=== PATIENT | male | born 1945 | race Caucasian/White ===

== ENCOUNTER 2016-08-25 16:01 | Emergency (ER) | payer MEDICARE ==
--- NOTE | 2016-08-25 17:43 | ED ---
Upper Extremity Pain - HPI Summary HPI Summary: Patient presents with left thumb pain for two days. He hurt it when he unsnapped the top of his shop vac. He felt immediate pain afterwards and waited 48 hours to see if it would improve. He has swelling and bruising, and has used ibuprofen 600mg 3-4 times daily with relief. He is left handed and has pain when using the thumb. - History of Current Complaint Chief Complaint: EDExtremityUpper Stated Complaint: THUMB INJURY Time Seen by Provider: 08/25/16 17:14 Hx Obtained From: Patient Mechanism Of Injury: Twisted Onset/Duration: Started Days Ago - 2 Timing: Constant Severity Initially: Mild Severity Currently: Severe Pain Location: Finger - left thumb Character: Aching, Throbbing, Stiffness Aggravating Factor(s): Movement Alleviating Factor(s): Nothing Associated Signs & Symptoms: Positive: Swelling, Bruising Related History: Dominant Hand Left - Allergies/Home Medications Allergies/Adverse Reactions: Allergies Allergy/AdvReac Type Severity Reaction Status Date / Time No Known Allergies Allergy Verified 02/15/16 08:29 PMH/Surg Hx/FS Hx/Imm Hx Endocrine/Hematology History: Reports: Hx Anticoagulant Therapy - ASA Denies: Hx Diabetes Cardiovascular History: Reports: Hx Angina, Hx Coronary Artery Disease, Hx Hypercholesterolemia, Hx Hypertension, Hx Myocardial Infarction, Other Cardiovascular Problems/Disorders - OBESITY Denies: Hx Valvular Heart Disease Respiratory History: Reports: Other Respiratory Problems/Disorders - sherry Denies: Hx Asthma, Hx Chronic Obstructive Pulmonary Disease (COPD) GI History: Reports: Hx Gastroesophageal Reflux Disease, Other GI Disorders - lap band Denies: Hx Ulcer History: Reports: Hx Benign Prostatic Hyperplasia, Hx Kidney Stones Neurological History: Denies: Hx CVA Psychiatric History: Reports: Hx Attention Deficit Hyperactivity Disorder - Surgical History Surgery Procedure, Year, and Place: laproscopic band Infectious Disease History: No Infectious Disease History: Denies: Traveled Outside the [place] in Last 30 Days - Family History Known Family History: Positive: None, Cardiac Disease, Diabetes Negative: Hypertension Family History: R & n/C - Social History Occupation: Retired Lives: With Family Alcohol Use: Occasionally Hx Substance Use: No Substance Use Type: Reports: None Hx Tobacco Use: Yes - on and off for 25 years Smoking Status (MU): Former Smoker Review of Systems Positive: Arthralgia, Myalgia, Decreased ROM, Edema Positive: Bruising Negative: Weakness, Paresthesia, Numbness All Other Systems Reviewed And Are Negative: Yes Physical Exam Triage Information Reviewed: Yes Vital Signs On Initial Exam: Initial Vitals Temp Pulse Resp BP Pulse Ox 97.1 F 66 18 134/74 98 08/25/16 16:23 08/25/16 16:23 08/25/16 16:23 08/25/16 16:23 08/25/16 16:23 Vital Signs Reviewed: Yes Appearance: Positive: Well-Appearing, Pain Distress, Obese Skin: Positive: Warm, Skin Color Reflects Adequate Perfusion, Dry, Tender Head/Face: Positive: Normal Head/Face Inspection Eyes: Positive: EOMI, ESTEFANY, Conjunctiva Clear ENT: Positive: Hearing grossly normal Respiratory/Lung Sounds: Positive: Breath Sounds Present Cardiovascular: Positive: RRR Musculoskeletal: Positive: Limited @ - left thumb adduction and abduction limited, Pain @ - left thumb adduction against resistance; TTP over extensor policis brevis and base of 1st metacarpal, Edema Left - left thumb Neurological: Positive: Sensory/Motor Intact, Alert, Oriented to Person Place, Time, NV Bundle Intact Distally Psychiatric: Positive: Affect/Mood Appropriate AVPU Assessment: Alert Procedures - Splinting Location: left thumb Hand-Made Type: orthoglass Splint: thumb spica Pre-Proc Neuro Vasc Exam: normal Post-Proc Neuro Vasc Exam: normal Diagnostics - Vital Signs Vital Signs Temp Pulse Resp BP Pulse Ox 08/25/16 16:23 97.1 F 66 18 134/74 98 - Laboratory Lab Statement: Any lab studies that have been ordered have been reviewed, and results considered in the medical decision making process. Course/Dx - Diagnoses Differential Diagnosis/HQI/PQRI: Positive: Arthritis, Bursitis, Contusion, Fracture (Closed), Hematoma, Strain, Sprain Provider Diagnoses: Fracture of thumb, left, closed Discharge - Discharge Plan Condition: Stable Disposition: HOME Patient Education Materials: Thumb Fracture (ED) Referrals: Goyo Hanson MD [Primary Care Provider] - Rebekah Sanchez MD [Medical Doctor] - Additional Instructions: Please keep your splint clean, dry and intact at all times. Elevate your hand above your heart and take ibuprofen 600mg three to four times daily with meals to decrease swelling and pain as well. Call Dr. Sanchez's office with orthopedics for an appointment for evaluation and treatment. Return to the emergency department if your symptoms worsen.
--- NOTE | 2016-08-25 17:55 | RAD ---
HISTORY: Left hand first digit injury COMPARISONS: None VIEWS: 3, Frontal, lateral, and oblique views of the first digit of left hand FINDINGS: BONE DENSITY: Normal. BONES: There is a nondisplaced fracture of the base of the first metatarsal JOINTS: There is osteoarthritis of the first CMC, MCP, and interphalangeal joints ALIGNMENT: There is no dislocation. SOFT TISSUES: Unremarkable. OTHER FINDINGS: None. IMPRESSION: 1. NONDISPLACED FRACTURE OF THE BASE OF THE FIRST METATARSAL. 2. OSTEOARTHRITIS
[2016-08-25 19:27] VITALS: BP 135/74
== END 2016-08-25 19:26 | disposition home or self-care (01) ==
LOC: ED 16:01
DX: S62.502A Fracture of unspecified phalanx of left thumb, initial encounter for closed fracture (principal); M25.50 Pain in unspecified joint; Z87.891 Personal history of nicotine dependence; W22.8XXA Striking against or struck by other objects, initial encounter; Y93.89 Activity, other specified; Y92.89 Other specified places as the place of occurrence of the external cause
CPT/HCPCS: 99282

== ENCOUNTER 2017-10-20 22:02 | Emergency (ER) | payer MEDICARE ==
[2017-10-20] MEDS ORDERED: Gabapentin CAP(*) 100 MG PO ONE (22:34)
[2017-10-20] MEDS ORDERED: Acetaminophen TAB* 325 MG PO ONE (22:34)
[2017-10-20] MEDS ORDERED: Ibuprofen TAB* 200 MG PO ONE (22:34)
[2017-10-20] MEDS ORDERED: Acyclovir* 400 MG TAB PO ONE (22:36)
[2017-10-20 23:07] VITALS: BP 148/89
--- NOTE | 2017-10-21 00:04 | ED ---
Costa Granaods Natalie, scribed for Diego Shannon MD on 10/20/17 at 2235 . Skin Complaint - HPI Summary HPI Summary: The patient is a 72 y/o M presenting to the ED c/o rash on left back and flank starting two days ago. The rash started out as singular spot, but has enlarged and spread starting today. The pain is described as a burning sensation. The pain is alleviated when sitting and aggravated with contact. The pain is rated 9 /10 in severity. He has treated the pain to some relief with Tylenol [employer]. He has had chicken pox and did not get the shingles vaccine. - History of Current Complaint Chief Complaint: EDRashSkinAbscess Time Seen by Provider: 10/20/17 22:21 Stated Complaint: SORE ON BACK Hx Obtained From: Patient Onset/Duration: Started Days Ago, Still Present Timing: Constant Onset Severity: Mild Current Severity: Moderate Pain Intensity: 5 Pain Scale Used: 0-10 Numeric Skin Location: Other: - left flank and back Character: Pain - burning, Redness Aggravating Symptom(s): Other: - contact Alleviating Symptom(s): Other: - sitting, rest Associated Signs & Symptoms: Negative - fever - Additional Pertinent History Primary Care Physician: [id number] - Allergy/Home Medications Allergies/Adverse Reactions: Allergies Allergy/AdvReac Type Severity Reaction Status Date / Time No Known Allergies Allergy Verified 10/20/17 22:08 PMH/Surg Hx/FS Hx/Imm Hx Endocrine/Hematology History: Reports: Hx Anticoagulant Therapy - ASA Denies: Hx Diabetes Cardiovascular History: Reports: Hx Angina, Hx Coronary Artery Disease, Hx Hypercholesterolemia, Hx Hypertension, Hx Myocardial Infarction, Other Cardiovascular Problems/Disorders - OBESITY Denies: Hx Valvular Heart Disease Respiratory History: Reports: Other Respiratory Problems/Disorders - sherry Denies: Hx Asthma, Hx Chronic Obstructive Pulmonary Disease (COPD) GI History: Reports: Hx Gastroesophageal Reflux Disease, Other GI Disorders - lap band Denies: Hx Ulcer History: Reports: Hx Benign Prostatic Hyperplasia, Hx Kidney Stones Neurological History: Denies: Hx CVA Psychiatric History: Reports: Hx Attention Deficit Hyperactivity Disorder - Surgical History Surgery Procedure, Year, and Place: laproscopic band Infectious Disease History: No Infectious Disease History: Denies: Traveled Outside the [place] in Last 30 Days - Family History Known Family History: Positive: Cardiac Disease, Diabetes Negative: Hypertension Family History: R & n/C - Social History Alcohol Use: Occasionally Hx Substance Use: No Substance Use Type: Reports: None Hx Tobacco Use: Yes - on and off for 25 years Smoking Status (MU): Former Smoker Review of Systems Negative: Fever Positive: Rash - left flank and back with pain, Other - redness All Other Systems Reviewed And Are Negative: Yes Physical Exam - Summary Physical Exam Summary: Appearance: Well appearing, no pain distress Skin: warm, dry, reflects adequate perfusion, dermatomal versicolor rash on left low lumbar area spreading around towards belt line Head/face: normal Eyes: EOMI, ESTEFANY ENT: normal Neck: supple, non-tender Respiratory: CTA, breath sounds present Cardiovascular: RRR, pulses symmetrical Abdomen: non-tender, soft Bowel Sounds: present Musculoskeletal: normal, strength/ROM intact Neuro: normal, sensory motor intact, A&Ox3 Triage Information Reviewed: Yes Vital Signs On Initial Exam: Initial Vitals Temp Pulse Resp BP Pulse Ox 97.7 F 68 18 141/81 96 10/20/17 22:04 10/20/17 22:04 10/20/17 22:04 10/20/17 22:04 10/20/17 22:04 Vital Signs Reviewed: Yes Diagnostics - Vital Signs Vital Signs Temp Pulse Resp BP Pulse Ox 10/20/17 22:04 97.7 F 68 18 141/81 96 - Laboratory Lab Statement: Any lab studies that have been ordered have been reviewed, and results considered in the medical decision making process. Course/Dx - Course Course Of Treatment: Patient with classic herpes zoster in a dermatomal pattern on his left flank. Started antiviral here. Had relief with Tylenol. Give him a dose of gabapentin as well. We'll continue outpatient Valtrex and have him follow up closely with his primary care physician. - Diagnoses Provider Diagnoses: Herpes zoster Discharge - Sign-Out/Discharge Documenting (check all that apply): Discharge/Admit/Transfer - Discharge Plan Condition: Good Disposition: HOME Prescriptions: Gabapentin [Neurontin] 100 mg PO TID #15 capsule ValACYclovir (*) [Valtrex 1 GM(*)] 1 gm PO TID #20 tab Patient Education Materials: Shingles (ED) Referrals: Goyo Hanson MD [Primary Care Provider] - Additional Instructions: Call your doctor first thing in the morning for follow-up. Tylenol as needed for discomfort. See your doctor to get shingles vaccine. - Billing Disposition and Condition Condition: GOOD Disposition: HOME The documentation as recorded by the Costa hare Natalie accurately reflects the service I personally performed and the decisions made by me, Diego Shannon MD.
== END 2017-10-20 23:06 | disposition home or self-care (01) ==
LOC: ED 22:02
DX: B02.9 Zoster without complications (principal); I10 Essential (primary) hypertension; I25.10 Atherosclerotic heart disease of native coronary artery without angina pectoris; Z87.891 Personal history of nicotine dependence; Z79.01 Long term (current) use of anticoagulants; Z79.82 Long term (current) use of aspirin
CPT/HCPCS: 99282; A9270-GY

== ENCOUNTER 2019-09-18 07:23 | Emergency (ER) | payer MEDICARE ==
--- NOTE | 2019-09-18 07:47 | ED ---
GI/ HPI - HPI Summary HPI Summary: 74 y/o male presented to [facility] for bladder pain present since this morning. Pt woke up today with an urge to urinate and was able to urinate some but not much. Since then he has complained of bladder pain, dysuria, and urgency. Patient denies any diaphoresis, fever, chills, erythema of eyes, sore throat, chest pain, cough, abdominal pain, nausea/vomiting, hematuria, myalgia, edema, rash, or dizziness. He notes intermittent left flank pain since last week and chronic SOB. Pain is rated as 2/10 at baseline and 9/10 during intermittent episodes. Pt notes Hx of renal calculi in the and BPH. Medications reviewed. He did not take his medications for BPH yesterday or today. - History of Current Complaint Chief Complaint: EDUrogenitalProblems Time Seen by Provider: 09/18/19 07:35 Stated Complaint: UNABLE TO VOID Hx Obtained From: Patient Onset/Duration: Started Weeks Ago, Still Present Timing: Lasting Weeks Current Severity: Mild Pain Intensity: 3 Location of Pain: Other - bladder Associated Signs and Symptoms: Positive: Dysuria, Other: - positive - bladder pain, urgency; negative - diaphoresis, erythema of eyes, sore throat, hematuria , myalgia, edema, rash. Negative: Dizziness, Nausea, Vomiting, Fever, Chills, Abdominal Pain, Cough, Chest Pain - Additional Pertinent History Primary Care Physician: [id number] - Allergy/Home Medications Allergies/Adverse Reactions: Allergies Allergy/AdvReac Type Severity Reaction Status Date / Time No Known Allergies Allergy Verified 10/20/17 22:08 Home Medications: Home Medications Aspirin EC TAB* [Ecotrin EC Low Dose 81 MG*] 81 mg PO DAILY 10/05/15 [History Confirmed 02/15/16] Atorvastatin* [Lipitor 40 MG*] 40 mg PO DAILY 10/05/15 [History Confirmed ] Multiple Vitamins W/ Minerals [Centrum] 1 tab PO DAILY 10/05/15 [History Confirmed 02/15/16] Cholecalciferol [Vitamin D3] 2,000 unit PO DAILY 02/15/16 [History Confirmed ] Tamsulosin CAP* [Flomax CAP*] 0.4 mg PO DAILY 02/15/16 [History Confirmed ] Cephalexin CAP* [Keflex CAP*] 500 mg PO TID #21 cap 09/18/19 [Rx] Finasteride TAB* [Proscar TAB*] 5 mg PO DAILY 09/18/19 [History Confirmed ] Metoprolol Succinate XL TAB* [Toprol XL TAB*] 100 mg PO DAILY 09/18/19 [History Confirmed 09/18/19] Spironolactone TAB* [Aldactone TAB*] 50 mg PO DAILY 09/18/19 [History Confirmed 09/18/19] traZODone TAB* [Desyrel TAB*] 100 mg PO BEDTIME 09/18/19 [History Confirmed ] PMH/Surg Hx/FS Hx/Imm Hx Endocrine/Hematology History: Reports: Hx Anticoagulant Therapy - ASA Denies: Hx Diabetes Cardiovascular History: Reports: Hx Angina, Hx Coronary Artery Disease, Hx Hypercholesterolemia, Hx Hypertension, Hx Myocardial Infarction, Other Cardiovascular Problems/Disorders - OBESITY Denies: Hx Valvular Heart Disease Respiratory History: Reports: Other Respiratory Problems/Disorders - sherry Denies: Hx Asthma, Hx Chronic Obstructive Pulmonary Disease (COPD) GI History: Reports: Hx Gastroesophageal Reflux Disease, Other GI Disorders - lap band Denies: Hx Ulcer History: Reports: Hx Benign Prostatic Hyperplasia, Hx Kidney Stones Neurological History: Denies: Hx CVA Psychiatric History: Reports: Hx Attention Deficit Hyperactivity Disorder - Surgical History Surgery Procedure, Year, and Place: laproscopic band Infectious Disease History: No Infectious Disease History: Denies: Traveled Outside the [place] in Last 30 Days - Family History Known Family History: Positive: Cardiac Disease, Diabetes Negative: Hypertension Family History: R & n/C - Social History Alcohol Use: Occasionally Hx Substance Use: No Substance Use Type: Reports: None Hx Tobacco Use: Yes - on and off for 25 years Smoking Status (MU): Former Smoker Review of Systems Negative: Fever, Chills, Skin Diaphoresis Negative: Erythema Negative: Sore Throat Negative: Chest Pain Positive: Shortness Of Breath - chronic. Negative: Cough Negative: Abdominal Pain, Vomiting, Nausea Positive: dysuria, flank pain - intermittent, pain, urgency. Negative: hematuria Negative: Myalgia, Edema Negative: Rash Neurological/Mental Status: Other - negative - dizziness All Other Systems Reviewed And Are Negative: Yes Physical Exam - Summary Physical Exam Summary: Constitutional: Well-developed, Well-nourished, Alert. (-) Distressed Skin: Warm, Dry HENT: Normocephalic; Atraumatic Eyes: Conjunctiva normal Neck: Musculoskeletal ROM normal neck. (-) JVD, (-) Stridor, (-) Tracheal deviation Cardio: Rhythm regular, rate normal, Heart sounds normal; Intact distal pulses; The pedal pulses are 2+ and symmetric. Radial pulses are 2+ and symmetric. (-) Murmur Pulmonary/Chest wall: Effort normal. (-) Respiratory distress, (-) Wheezes, (-) Rales Abd: Soft, (-) tenderness, (-) Distension, (-) Guarding, (-) Rebound Musculoskeletal: (-) Edema Lymph: (-) Cervical adenopathy Neuro: Alert, Oriented x3 Psych: Mood and affect Normal Triage Information Reviewed: Yes Vital Signs On Initial Exam: Initial Vitals Temp Pulse Resp BP Pulse Ox 96.5 F 93 18 161/84 96 09/18/19 07:29 09/18/19 07:29 09/18/19 07:29 09/18/19 07:29 09/18/19 07:29 Vital Signs Reviewed: Yes Procedures - Sedation Patient Received Moderate/Deep Sedation with Procedure: No Diagnostics - Vital Signs Vital Signs Temp Pulse Resp BP Pulse Ox 09/18/19 07:29 96.5 F 93 18 161/84 96 - Laboratory Result Diagrams: 09/18/19 08:10 09/18/19 08:10 Lab Statement: Any lab studies that have been ordered have been reviewed, and results considered in the medical decision making process. - CT Abd/pel CT Interpretation Completed By: Radiologist Summary of CT Findings: IMPRESSION: 1. INCREASED CENTRAL ATTENUATION WITHIN THE INCOMPLETELY COLLAPSED URINARY BLADDER. RECOMMEND ULTRASOUND TO SCREEN FOR AN UNDERLYING LESION. 2. A NEARLY WATER ATTENUATING 5.7 CM STRUCTURE IN THE HEAD OF THE FATTY INVOLUTED. PANCREAS IS INCOMPLETELY CHARACTERIZED. ABDOMINAL MRI PANCREATIC MASS PROTOCOL IS. RECOMMENDED ON AN ELECTIVE BASIS. 3. NO NEPHROLITHIASIS OR HYDRONEPHROSIS. 4. 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 5. D.I.S.H. MORPHOLOGY OF THE IMAGED THORACOLUMBAR. This report was reviewed by the ED physician. GIGU Course/Dx - Course Course Of Treatment: 74 y/o male presented to [facility] for bladder pain present since this morning. Pt woke up today with an urge to urinate and was able to urinate some but not much. Since then he has complained of bladder pain, dysuria , and urgency. Patient denies any diaphoresis, fever, chills, erythema of eyes, sore throat, chest pain, cough, abdominal pain, nausea/vomiting, hematuria, myalgia, edema, rash, or dizziness. He notes intermittent left flank pain since last week and chronic SOB. Pain is rated as 2/10 at baseline and 9/10 during intermittent episodes. Pt notes Hx of renal calculi in the and BPH. He did not take his medications for BPH yesterday or today. Exam was normal. Labs showed Hgb 13.9, Hct 40, K 3.4, BUN/creatinine ratio 20.7, Glc 133, Lactic acid 2.1, Alk 119, and CRP 13.80. CT abd/pel showed the followin. INCREASED CENTRAL ATTENUATION WITHIN THE INCOMPLETELY COLLAPSED URINARY BLADDER. RECOMMEND ULTRASOUND TO SCREEN FOR AN UNDERLYING LESION. 2. A NEARLY WATER ATTENUATING 5.7 CM STRUCTURE IN THE HEAD OF THE FATTY INVOLUTED. PANCREAS IS INCOMPLETELY CHARACTERIZED. ABDOMINAL MRI PANCREATIC MASS PROTOCOL IS. RECOMMENDED ON AN ELECTIVE BASIS. 3. NO NEPHROLITHIASIS OR HYDRONEPHROSIS. 4. 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 5. D.I.S.H. MORPHOLOGY OF THE IMAGED THORACOLUMBAR. Pt requires MRI abd to further evaluate the pancreatic cyst. Leaving catheter in place due to thick sediment causing urinary obstruction. Pt was given 5mg PO finasteride , 0.4mg tamsulosin, 1g ceftraxione sodium. Pt was diagnosed with pancreatic cyst; prescribed PO Cephalexin; and discharged to home. - Diagnoses Differential Diagnoses - Male: Cystitis, Other - BPH, obstructing ureteral stone , renal insufficiency Provider Diagnoses: Pancreatic cyst - Critical Care Time Critical Care Statement: Critical care time is provided exclusive of any time spent performing procedures. Discharge ED - Sign-Out/Discharge Documenting (check all that apply): Patient Departure - dc - Discharge Plan Condition: Stable Disposition: HOME Prescriptions: Cephalexin CAP* [Keflex CAP*] 500 mg PO TID #21 cap Patient Education Materials: Urinary Tract Infection in Men (ED) Referrals: Goyo Hanson MD [Primary Care Provider] - Telly Matute MD [Medical Doctor] - Additional Instructions: RETURN TO THE EMERGENCY DEPARTMENT FOR CHANGING OR WORSENING SYMPTOMS. Follow up with Dr. Matute in 2-3 days and your primary care provider in 3-5 days. - Attestation Statements Document Initiated by Scribe: Yes Documenting Scribe: Prince Albarran Provider For Whom Scribe is Documenting (Include Credential): Ramses Bravo MD Scribe Attestation: IPrince, scribed for Ramses Bravo MD on 09/18/19 at 1023. Status of Scribe Document: Ready
[2019-09-18] MEDS ORDERED: Tamsulosin CAP* 0.4 MG PO ONE (07:51)
[2019-09-18] MEDS ORDERED: Finasteride TAB* 5 MG PO ONE (07:51)
[2019-09-18 08:18] LABS: ABS Eosinophils 0.1 10^3/ul (0-0.6); ABS Lymphocytes 1.1 10^3/ul (1.0-4.8); ABS Monocytes 0.6 10^3/ul (0-0.8); ABS Neutrophils 5.9 10^3/ul (1.5-7.7); Eosinophil % 1.2 %; Hematocrit 40 % (42-52); Hemoglobin 13.9 g/dL (14.0-18.0); Lymphocyte % 14.2 %; Mean Corpuscular HGB Conc 35 g/dL (31-36); Mean Corpuscular Hemoglobin 31 pg (27-31); Mean Corpuscular Volume 88 fL (80-94); Mean Platelet Volume 7.4 fL (7.4-10.4); Platelet Count 199 10^3/uL (150-450); Red Blood Count 4.53 10^6 /uL (4.18-5.48); Red Cell Distribution Width 14 % (10-15); White Blood Count 7.8 10^3/uL (3.5-10.8)
--- OUTSIDE RECORDS SUMMARY | 2019-09-18 08:27 | XMS REPORT | Continuity of Care Document ---
:1945 External Reference #:[id number] Author Name Calixto Velarde, OD Address [address] [place] [address] Care Team Providers Name Role Phone Goyo Hanson MD - Internal Care Team Information Academic Administrator [phone] Medicine Problems Description No Information Available Social History Type Date Description Comments Sex Unknown ETOH Use Denies alcohol use Tobacco Use Start: Unknown End: Unknown Patient is a former smoker quit 1995 Smoking Status Reviewed: 07/29/19 Patient is a former smoker quit 1995 Allergies, Adverse Reactions, Alerts Description No Known Drug Allergies Medications Active Medications SIG Qnty Indications Ordering Provider Date Spironolactone Unknown 25mg Tablets Torsemide Valentin HERNANDEZ, 20mg Tablets Goyo Atorvastatin Calcium Take 1 Tablet Unknown 40mg By Mouth Every Tablets Day Aspirin 81 twice a week Unknown 81mg Tablets DR Multivitamin Adult Unknown Tablets Vitamin D Unknown 2000Unit Capsules Metformin HCL ER Unknown 500mg Tablets ER 24HR Cyclobenzaprine HCL Unknown 10mg Tablets Metoprolol Succinate ER Unknown 100mg Tablets ER 24HR Immunizations Description No Information Available Vital Signs Date Vital Result Comment 06/28/2019 10:18am Intraocular Pressure Right Eye 19 mmHg squeezing Intraocular Pressure Left Eye 22 mmHg squeezing 02/11/2019 2:33pm Intraocular Pressure Right Eye 18 mmHg Intraocular Pressure Left Eye 18 mmHg Results Description No Information Available Procedures Date Code Description Status 07/29/2019 28650 Eye Exam Est Intermediate Completed 06/28/2019 15412 Eye Exam Est Intermediate Completed 02/11/2019 86850 Refraction Completed 02/11/2019 60396 Eye Exam New Intermediate Completed Medical Devices Description No Information Available Encounters Description No Information Available Assessments Date Code Description Provider 07/29/2019 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 Plan of Treatment 07/29/2019 - Calixto Velarde, ODH43.811 Vitreous degeneration, right eyeH02.413 Mechanical ptosis of bilateral eyelidsFollow up:yearly full VF taped/untaped if desired Functional Status Description No Information Available Mental Status Description No Information Available Referrals Description No Information Available
--- OUTSIDE RECORDS SUMMARY | 2019-09-18 08:27 | XMS REPORT | Summary of Care ---
:1945 Author Organization [facility] Address [address] [facility] [place] [address] Care Team Providers Name Role Phone Goyo Hanson Primary Care Provider Reason for Visit Reason Comments Hip Pain left Refer to Department Only (Routine) Status Reason Specialty Diagnoses / Referred By Contact Referred To Contact Procedures Closed Orthopedics Diagnoses Hip arthritis Franklin Franco PA [address] [address] Encounter Details Date Type Department Care Team Description 07/29/2019 Office Visit [facility] - Michelet Rodriguez, Primary osteoarthritis Rebekah HERNANDEZ of left hip (Primary [address]) [address] [place] [address] [place] [id number] Allergies No Known Allergiesdocumented as of this encounter (statuses as of 07/29/2019) Medications Medication Sig Dispensed Refills Start End Date Status Date Aspirin 81 MG Oral Take 81 mg by 0 Active Tab mouth. Cholecalciferol Take 2,000 0 Active (VITAMIN D3) 1000 Units by mouth UNITS Oral Tab DAILY. Multiple Take 1 Tab by 0 Active Vitamins-Minerals mouth DAILY. (CENTRUM SILVER ULTRA MENS PO) atorvastatin TAKE 1 TABLET 90 Tab 2 Active (LIPITOR) 40 MG Oral BY MOUTH EVERY 9 Tab DAY metoprolol succinate Take 1 Tab by 90 Tab 3 Active (TOPROL XL) 100 MG mouth DAILY. 0 Oral TABLET SR 24 HRIndications: Congestive heart failure, unspecified HF chronicity, unspecified heart failure type (HCC) Spironolactone 50 MG Take 1 Tab by 90 Tab 3 Active Oral TabIndications: mouth DAILY. 0 Congestive heart failure, unspecified HF chronicity, unspecified heart failure type (HCC) torsemide (DEMADEX) TAKE 1 AND 1/2 225 Tab 3 Active 20 MG Oral Tab TABS BY MOUTH 0 EVERY DAY IN THE MORNING AND 1 TAB IN THE AFTERNOON metFORMIN Take 2,000 mg 0 Active (GLUCOPHAGE XR) 500 by mouth MG Oral TABLET SR 24 DAILY. HR trazodone (DESYREL) Take 1 Tab by 90 Tab 1 Active 100 MG Oral mouth EVERY 0 TabIndications: BEDTIME. Insomnia, unspecified type FINASTERIDE PO Take by 0 Active mouth. Tamsulosin HCl Take 0.4 mg by 0 Active (FLOMAX) 0.4 MG Oral mouth DAILY. Cap meloxicam (MOBIC) 15 Take 1 Tab by 30 Tab 0 07/29/19 Discontinued MG Oral mouth DAILY. 0 20 (Patient stopped TabIndications: Left the medication) hip pain cyclobenzaprine Take 1 Tab by 42 Tab 0 07/29/19 Discontinued (FLEXERIL) 10 MG mouth THREE 0 20 (Patient stopped Oral TabIndications: TIMES DAILY the medication) Left hip pain NEEDED (for hip pain.). documented as of this encounter (statuses as of 07/29/2019) Active Problems Problem Noted Date Primary osteoarthritis of left hip 07/29/2019 Heart attack 02/24/2019 Dyslipidemia 02/23/2019 Essential hypertension 02/23/2019 Chronic diastolic congestive heart failure 06/10/2018 Binge eating disorder 06/10/2018 Overview: Sees therapist weekly transplant case manager Rebekah GRIFFIN prescription naltrexone Shanice Guajardo MICHELLE (obstructive sleep apnea) 05/18/2017 Overview: [employer] [place] (switched from [facility])- Bipap . 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 Band surgery [facility] 2006 pre op weight 360 pounds Lowest post op weight 312 2006 2014 weight gain 331 pounds Dysthymic disorder 07/13/2015 Overview: Buproprion treatment Hypovitaminosis D 07/13/2015 Gastroesophageal reflux disease without esophagitis 07/13/2015 documented as of this encounter (statuses as of 07/29/2019) Immunizations Name Administration Dates Next Due Influenza (IM) Preservative Free 02/29/2016 Influenza Vaccine 65 Yrs + 03/09/2019 Influenza Vaccine High Dose 03/18/2017 Influenza Vaccine Split 04/11/2014, 01/31/2012 Pneumococcal Conjugate Vaccine 04/13/2014, 11/02/2012, 09/29/2012 Pneumococcal Conjugate(13 Valent) 04/01/2014 TDAP Vaccine 01/30/2011 ZOSTER (SHINGRIX) VACCINE 02/15/2019 documented as of this encounter Social History Tobacco Use Types Packs/Day Years Used Date Former Smoker Cigarettes 1 10 Smokeless Tobacco: Never Used Alcohol Use Drinks/Week oz/Week Comments Yes 2 Glasses of wine 2.0 Sex Assigned at Date Recorded Not on file documented as of this encounter Last Filed Vital Signs Vital Sign Reading Time Taken Comments Blood Pressure - - Pulse - - Temperature - - Respiratory Rate 20 07/29/2019 12:26 PM EST Oxygen Saturation - - Inhaled Oxygen Concentration - - Weight 172.4 kg (380 lb) 07/29/2019 12:26 PM EST Height 182.9 cm (6') 07/29/2019 12:26 PM EST Body Mass Index 51.54 07/29/2019 12:26 PM EST documented in this encounter Progress Notes Michelet Rodriguez MD - 07/29/2019 12:15 PM EST PATIENT: Alphonse Elias : 1945 DATE OF SERVICE: 07/29/2019 REFERRING PROVIDER: Franklin Franco PCP: Goyo Hanson Chief Complaint Patient presents with ? Hip Pain left HPI: Alphonse Elias is a 74-y.o. male with complaint of left hip pain. The pain is 0/10 at rest, and 6/10 at its worst. The pain has been present for 1 months . It is located lateral thigh. It is worse with weight bearing, stairs and activity. Alphonse Elias has tried tylenol, NSAID's and activitymodification, these are no longer helping. Physical therapy and/or home exercise has bee done for 2 sessions. The pain is interfering with daily activities and affecting quality of life. Pain Assessment Location of pain: left hip Symptoms: Throbbing;Aching;Buckling Timing of Pain: Intermittent Relieving Factors: Rest Aggravating Factors: Rising after sitting;Walking;Bending What time of day is your pain worse?: Evening Pain Severity at Rest: 0 Pain Score during activity: 6 Result of Injury: No No Known Allergies Current Outpatient Medications Medication Sig ? Aspirin 81 MG Oral Tab Take 81 mg by mouth. ? atorvastatin (LIPITOR) 40 MG Oral Tab TAKE 1 TABLET BY MOUTH EVERY DAY ? Cholecalciferol (VITAMIN D3) 1000 UNITS Oral Tab Take 2,000 Units by mouth DAILY. ? FINASTERIDE PO Take by mouth. ? metFORMIN (GLUCOPHAGE XR) 500 MG Oral TABLET SR 24 HR Take 2,000 mg by mouth DAILY. ? metoprolol succinate (TOPROL XL) 100 MG Oral TABLET SR 24 HR Take 1 Tab by mouth DAILY. ? Multiple Vitamins-Minerals (CENTRUM SILVER ULTRA MENS PO) Take 1 Tab by mouth DAILY. ? Spironolactone 50 MG Oral Tab Take 1 Tab by mouth DAILY. ? Tamsulosin HCl (FLOMAX) 0.4 MG Oral Cap Take 0.4 mg by mouth DAILY. ? torsemide (DEMADEX) 20 MG Oral Tab TAKE 1 AND 1/2 TABS BY MOUTH EVERY DAY IN THE MORNING AND1 TAB IN THE AFTERNOON ? trazodone (DESYREL) 100 MG Oral Tab Take 1 Tab by mouth EVERY BEDTIME. No current facility-administered medications for this visit. Past Medical History: Diagnosis Date ? Heart disease DC in 1995 ? Hernia of abdominal cavity bilateral inguinal hernia repair in the mid- ? Kidney stone Past Surgical History: Procedure Laterality Date ? NC GI NUCLEAR PROCEDURE UNLISTED bilateral inguinal hernia ? NC GI NUCLEAR PROCEDURE UNLISTED lap band A comprehensive review of systems was done and negative except for that noted in the HPI Social History Socioeconomic History ? Marital status: Spouse name: Not on file ? Number of children: Not on file ? Years of education: Not on file ? Highest education level: Not on file Occupational History ? Not on file Social Needs ? Financial resource strain: Not on file ? Food insecurity Worry: Not on file Inability: Not on file ? Transportation needs Medical: Not on file Non-medical: Not on file Tobacco Use ? Smoking status: Former Smoker Packs/day: 1.00 Years: 10.00 Pack years: 10.00 Types: Cigarettes ? Smokeless tobacco: Never Used Substance and Sexual Activity ? Alcohol use: Yes Alcohol/week: 2.0 standard drinks Types: 2 Glasses of wine per week ? Drug use: No ? Sexual activity: Not on file Lifestyle ? Physical activity Days per week: Not on file Minutes per session: Not on file ? Stress: Not on file Relationships ? Social connections Talks on phone: Not on file Gets together: Not on file Attends gnosticism service: Not on file Active member of club or organization: Not on file Attends meetings of clubs or organizations: Not on file Relationship status: Not on file ? Intimate partner violence Fear of current or ex partner: Not on file Emotionally abused: Not on file Physically abused: Not on file Forced sexual activity: Not on file Other Topics Concern ? 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 He has no known exposure to asbestos, silica- possible tuberculosis with hisprofession. Family History Problem Relation Age of Onset ? Arthritis Mother ? Cancer Mother breast ? Diabetes Mother ? Heart Mother CHF ? High Cholesterol Mother ? Thyroid Mother ? Asthma Father ? Cancer Father lung with mets ? Heart Father ? High Cholesterol Father ? Alcohol/Drug No family history ? Allergies No family history ? Blood Disease No family history ? Genetic No family history ? GI No family history ? Genitourinary () No family history ? Hypertension No family history ? Psychiatry No family history ? Seizures No family history ? Stroke No family history ? Respiratory No family history Family history is reviewed and unremarkable PHYSICAL EXAMINATION: Resp 20 | Ht 6' (1.829 m) | Wt 380 lb (172.4 kg) | BMI 51.54 kg/m Body mass index is 51.54 kg/m. Awake, alert, oriented Bilateral hips: No peritroch tenderness. Pos pain with internal rotation. Pos antalgic gait. Neg trendelenburg. Limb lengths grossly equal. Pos stinchfield. ROM 0-90 flexion, 10 internal rotation, 25 external rotation, 30 abduction, 10adduction, 5/5 DF, 5/5PF, sensate saphenous, sural, deep peroneal, superficial peronea, and plantar nerves + 2 dorsalis pedis and + 2 posterior tibial pulses. No noted lymphedema No pain with range of motion of lumbar spine. Straight leg raise neg . Bilateral knees are free of crepitus. Full range of motion. Patella tracks normally. Ligaments stable. Pain free with range of motion. No swelling. No joint line tenderness..neutral alignement. RADIOLOGIC STUDIES: I Have personally reviewed the Imaging, the report , and reviewed with the patinet, and it shows Left hip with joint space narrowing, sclerosis, spurring, consistent with Osteoarthritis. Lab Results Component Value Date GLYCO 5.6 11/15/2018 GLYCO 5.6 05/14/2018 ASSESSMENT: ICD-9-CM ICD-10-CM 1. Primary osteoarthritis of left hip 715.15 M16.12 PLAN: We discussed the natural history of osteoarthritis. He understands that it is a degenarative condition that is likely to worsen and that currently we have no treatments that slow or reverse the course.Conservative options for symptomatic treatment were discussed along with total hip arthroplasty. Atthis time He is going to continue with symptomatic treatment and call when He is ready for further intervention. Current BMI 51 discussed weight loss, he is working with weight loss clinic, has lost 4 lbs Discussed steroid injection for short term relief We will get this scheduled Author: Michelet Rodriguez MD 07/29/2019 12:34 Portions of this note were made with voice recognition software documented in this encounter Plan of Treatment Date Type Specialty Care Team Description 09/12/2019 Office Visit Cardiology Amanda Aguilar PA [address] [place] [id number] [phone] 09/15/2019 Office Visit Pulmonary Kale Santiago MD [address] [place] [address] [phone] Health Maintenance Due Date Last Done Comments MEDICARE ANNUAL WELLNESS 1945 VISIT PNEUMOCOCCAL 65+YRS (2 of 2 04/13/2015 04/13/2014, 04/01/2014, - PPSV23) 11/02/2012, Additional history exists ZOSTER IMMUNIZATION SERIES 04/12/2019 02/15/2019 (2 of 2) LIPID DISORDER SCREENING 11/16/2019 11/15/2018, 09/13/2018, 05/14/2018, Additional history exists DEPRESSION SCREENING 06/30/2020 06/30/2019, 06/10/2018 FALL RISK ASSESSMENT 06/30/2020 06/30/2019, 06/30/2019 DTaP/Tdap/Td Vaccines (2 - 01/30/2021 01/30/2011 Tdap) Colonoscopy 07/10/2024 07/10/2014 (Previously completed), 05/05/2011 AAA SCREENING/SURVEILLANCE Completed 06/16/2018 INFLUENZA VACCINE Completed 03/09/2019, 03/18/2017, 02/29/2016, Additional history exists HEPATITIS A IMMUNIZATION Aged Out No longer eligible SERIES based on patient's age to complete this topic HPV IMMUNIZATION SERIES Aged Out No longer eligible based on patient's age to complete this topic MENINGOCOCCAL VACCINE IMM Aged Out No longer eligible based on patient's age to complete this topic documented as of this encounter Goals Goal Patient Goal Associated Recent Patient-Stated? Author Type Problems Progress Blood Pressure Blood Pressure 138/86 No [place], < 150/90 (06/30/2019 Franklin Benton, 1:24 PM EST) JORDI Note: This is an individualized treatment (blood pressure) goal for Alphonse Elias: Displayed above (on the left) is your goal for blood pressure control. Your most recent blood pressure is also shown above, on the right. You should try to achieve blood pressures that are lower than your goal listed above (on the left). Weight increase vs. 18 mo CHF 33 (07/29/2019 12:26 PM EST) Goyo Richardson MD min (lbs) < 5 Note: This is an individualized treatment (congestive heart failure, CHF) goal for Alphonse Elias: Displayed above (on the right) is how many pounds you are in excess of your lowest weight over the past 18 months. Note that lower numbers are better. Excessive weight gain often indicates fluid reten tion and worsening heart failure. You should contact your doctor immediately if the above number is too high (above your goal, the number on the left). Depression screen Depression 12 (06/10/2018 4:15 PM Goyo Richardson , (PHQ-9) total score < 5 EST) Note: This is an individualized treatment (depression) goal for Alphonse Elias: Displayed above is your goal for a depression screening (PHQ-9) score that would indicate good control of your depression. Keep a regular sleep schedule Lifestyle Goyo Richardson MD Note: This is an individualized lifestyle goal for Alphonse Elias: Please maintain a regular sleep schedule. This may help with some symptoms of depression. Consume a [id number] diet Lifestyle Goyo Richardson MD Note: This is an individualized lifestyle goal for Alphonse Elias: Please do not add additional salt to your food. Additional salt may lead to fluid retention and worsen your congestive heart failure. Take all prescribed medications as Self-management Goyo Richardson MD directed Note: This is an individualized self-management goal for Alphonse Elias: Please take all prescribed medications as directed. 1. Do not skip doses. If you cannot afford your medications, talk with your doctor. 2. Use a pill reminder system such as a pill box if needed. Your pharmacist can help you with this. 3. Contact your Pharmacy 5 days before your medication runs out. If you cannot take your medications for any reasons, talk with your doctor. 4. Please bring all of your medication bottles and inhalers (or a list of all your medications/inhalers) with you to every visit. Potential barriers to meeting all of your care plan goals will continue to be addressed on an ongoing basis. Check your weight daily Self-management Goyo Richardson MD Note: This is an individualized self-management goal for Alphonse Elias: Please check your weight daily. Refer to the accompanying CHF treatment goal and call your doctor immediately for further instructions on how to respond to unexpected weight gain. documented as of this encounter Results Not on filedocumented in this encounter Visit Diagnoses Diagnosis Primary osteoarthritis of left hip Primary localized osteoarthrosis, pelvic region and thigh documented in this encounter Insurance Payer Benefit Plan / Subscriber ID Effective Dates Phone Address Type Group AETNA MEDICARE AETNA MEDICARE [id number] 2019-Present [employer] ADVANTAGE ADVANTAGE (Work) documented as of this encounter"
[2019-09-18 08:37] LABS: Albumin 3.7 g/dL (3.2-5.2); Albumin/Globulin Ratio 1.2 (1-3); BUN/Creatinine Ratio 20.7 (8-20); C Reactive Protein 13.8 mg/L (<8.01); Calcium 9.1 mg/dL (8.6-10.3); EGFR African American 78.8 (>60); EGFR Non-African American 65.1 (>60); Globulin 3.1 g/dL (2-4); Potassium 3.4 mmol/L (3.5-5.0); Total Bilirubin 0.5 mg/dL (0.2-1.0); Total Protein 6.8 g/dL (6.4-8.9)
[2019-09-18] MEDS ORDERED: NS 0.9% 1000 ML** 1,000 ML IV ONE (09:07)
[2019-09-18] MEDS ORDERED: cefTRIAXone(*) 1 GM in NS 0.9% 50 ML* 50 ML IVPB ONE (09:07)
[2019-09-18 09:18] LABS: Urine Appearance Cloudy; Urine Bilirubin Negative (Negative); Urine Blood 3+ (Negative); Urine Color Yellow; Urine Glucose Negative (Negative); Urine Ketones Negative (Negative); Urine Nitrite Negative (Negative); Urine Protein 1+(30 mg/dL) (Negative); Urine Specific Gravity 1.024 (1.010-1.030); Urine Urobilinogen Negative (Negative)
[2019-09-18 09:23] LABS: Urine Bacteria Absent (Absent); Urine Red Blood Cell 3+(>10/hpf) (Absent); Urine White Blood Cell 3+(>20/hpf) (Absent)
[2019-09-18 10:30] VITALS: BP 127/80
--- NOTE | 2019-09-21 05:43 | ED ---
Imaging and Labs Follow Up Follow Up Type: Labs/Cultures Labs/Culture Result: Urine Culture Final shows sensitivity to Keflex. Patient Communication/Plan: Pt treated with keflex, nothing further at this time. Tx appropriate. Provider Diagnoses: Pancreatic cyst
== END 2019-09-18 10:53 | disposition home or self-care (01) ==
LOC: ED 07:23
DX: K86.2 Cyst of pancreas (principal); R30.0 Dysuria; Z79.01 Long term (current) use of anticoagulants; I25.10 Atherosclerotic heart disease of native coronary artery without angina pectoris; E78.00 Pure hypercholesterolemia, unspecified; I25.2 Old myocardial infarction; I10 Essential (primary) hypertension; E66.9 Obesity, unspecified; K21.9 Gastro-esophageal reflux disease without esophagitis; N40.0 Benign prostatic hyperplasia without lower urinary tract symptoms; Z87.442 Personal history of urinary calculi; Z79.899 Other long term (current) drug therapy; Z79.82 Long term (current) use of aspirin
CPT/HCPCS: 36415; 74176; 80053; 81003; 81015; 83605; 83690; 85025; 86140; 87077; 87086; 87186; 96374; 99285; A9270-GY; J0696

== ENCOUNTER 2020-10-17 13:28 | Inpatient (IN) ==
[2020-10-17] MEDS ORDERED: Ondansetron 4 mg VIAL 2 MG/ML 2 ml VIAL IV ONE (17:33)
[2020-10-17 18:28] LABS: ABS Eosinophils 0.1 10^3/ul (0-0.6); ABS Monocytes 0.5 10^3/ul (0-0.8); ABS Neutrophils 5.2 10^3/ul (1.5-7.7); Eosinophil % 0.8 %; Hematocrit 41 % (42-52); Lymphocyte % 15.3 %; Mean Corpuscular HGB Conc 34 g/dL (31-36); Mean Corpuscular Hemoglobin 30 pg (27-31); Mean Corpuscular Volume 89 fL (80-94); Nucleated Red Blood Cells % 0.1; Platelet Count 232 10^3/uL (150-450); Red Blood Count 4.61 10^6 /uL (4.18-5.48); Red Cell Distribution Width 15 % (10-15); White Blood Count 6.8 10^3/uL (3.5-10.8)
[2020-10-17 18:49] LABS: Albumin 3.8 g/dL (3.2-5.2); Calcium 9.2 mg/dL (8.6-10.3); Total Bilirubin 1.8 mg/dL (0.2-1.0)
[2020-10-17 18:55] LABS: Albumin/Globulin Ratio 1.2 (1-3); C Reactive Protein 13.69 mg/L (<8.01); EGFR African American 79.4 (>60); EGFR Non-African American 65.6 (>60); Globulin 3.1 g/dL (2-4); Total Protein 6.9 g/dL (6.4-8.9)
[2020-10-17] MEDS ORDERED: Iohexol 300 (CONTRAST) 10 ML SDV IV ONE (19:02)
[2020-10-17] MEDS ORDERED: NS 0.9% 1000 ml BAG 1,000 ML IV ONE ×2 (19:40→19:41)
[2020-10-17] MEDS ORDERED: Ondansetron 4 mg VIAL 2 MG/ML 2 ml VIAL IV PRN (22:40)
[2020-10-17] MEDS ORDERED: Dextrose 50% Syringe 50 ml 25 GM/50 ML SYRINGE IV PUSH PRN (22:43)
[2020-10-18] MEDS: Enoxaparin 40 MG/0.4 ML SYR SUBCUT SCH ×2 (01:23→21:28)
[2020-10-18] MEDS: NS 0.9% 1000 ml BAG 1,000 ML IV SCH ×3 (01:32→16:46)
[2020-10-18 02:21] LABS: Urine Appearance Clear; Urine Bilirubin Negative (Negative); Urine Blood Negative (Negative); Urine Color Amber; Urine Glucose Negative (Negative); Urine Ketones Negative (Negative); Urine Nitrite Negative (Negative); Urine Protein Negative (Negative); Urine Urobilinogen Positive (Negative)
[2020-10-18 02:38] LABS: Urine Specific Gravity > 1.060 (1.002-1.030)
[2020-10-18 06:23] LABS: ABS Eosinophils 0.1 10^3/ul (0-0.6); ABS Lymphocytes 1.4 10^3/ul (1.0-4.8); ABS Monocytes 0.6 10^3/ul (0-0.8); Eosinophil % 2.1 %; Hematocrit 36 % (42-52); Hemoglobin 12.2 g/dL (14.0-18.0); Lymphocyte % 19.9 %; Mean Corpuscular HGB Conc 34 g/dL (31-36); Mean Corpuscular Hemoglobin 30 pg (27-31); Mean Corpuscular Volume 89 fL (80-94); Mean Platelet Volume 7.2 fL (7.4-10.4); Nucleated Red Blood Cells % 0.1; Platelet Count 208 10^3/uL (150-450); Red Blood Count 4.05 10^6 /uL (4.18-5.48); Red Cell Distribution Width 15 % (10-15); White Blood Count 7.3 10^3/uL (3.5-10.8)
[2020-10-18 06:43] LABS: Albumin 3.4 g/dL (3.2-5.2); Albumin/Globulin Ratio 1.2 (1-3); Calcium 8.6 mg/dL (8.6-10.3); EGFR African American 74.7 (>60); EGFR Non-African American 61.7 (>60); Globulin 2.9 g/dL (2-4); Potassium 3.5 mmol/L (3.5-5.0); Total Protein 6.3 g/dL (6.4-8.9)
[2020-10-18] MEDS: Pantoprazole VIAL 40 MG VIAL IV SCH (08:33)
[2020-10-18] MEDS: Nystatin TOP POWDER 15 GM BTL TOPICAL SCH ×3 (08:34→21:28)
[2020-10-18] MEDS: Aspirin EC 81 mg TAB.EC (enteric coated) PO SCH (08:34)
[2020-10-18] MEDS: Cholecalciferol (VIT D3) 1,000 unit TAB PO SCH (08:34)
[2020-10-19] MEDS: NS 0.9% 1000 ml BAG 1,000 ML IV SCH ×2 (00:52→08:44)
[2020-10-19 07:00] LABS: Albumin 3.2 g/dL (3.2-5.2); Albumin/Globulin Ratio 1.2 (1-3); Calcium 8.3 mg/dL (8.6-10.3); EGFR African American 75.4 (>60); EGFR Non-African American 62.3 (>60); Globulin 2.7 g/dL (2-4); Potassium 3.5 mmol/L (3.5-5.0); Total Bilirubin 0.5 mg/dL (0.2-1.0); Total Protein 5.9 g/dL (6.4-8.9)
[2020-10-19] MEDS: Cholecalciferol (VIT D3) 1,000 unit TAB PO SCH (08:36)
[2020-10-19] MEDS: Pantoprazole VIAL 40 MG VIAL IV SCH (08:36)
[2020-10-19] MEDS: Aspirin EC 81 mg TAB.EC (enteric coated) PO SCH (08:36)
[2020-10-19] MEDS: Nystatin TOP POWDER 15 GM BTL TOPICAL SCH (08:44)
[2020-10-19 10:15] VITALS: BP 121/59
== END 2020-10-19 12:15 | disposition home or self-care (01) | DRG 439 ==
LOC: ED 13:28 → MED 22:30
PROVIDERS: ADMIT Internal Medicine; ATTEND Student in an Organized Health Care Education/Training Program

== ENCOUNTER 2024-05-13 10:53 | Observation (INO) ==
[2024-05-13] MEDS: NS 0.9% 1000 ml BAG 1,000 ML IV ONE (12:35)
[2024-05-13] MEDS: Morphine 4 MG/ML VIAL (1 ml) IV ONE ×2 (12:35→14:03)
[2024-05-13] MEDS: Ondansetron 4 mg VIAL 2 MG/ML 2 ml VIAL IV ONE (12:35)
[2024-05-13 13:04] LABS: ABS Lymphocytes 1.2 10^3/uL (1.0-4.8); ABS Monocytes 1.3 10^3/uL (0.0-1.1); ABS Neutrophils 10.5 10^3/uL (1.5-7.6); ABS Nucleated RBC 0.02 10^3/ul; Eosinophil % 0.2 %; Hemoglobin 15.6 g/dL (13.2-16.3); Mean Corpuscular Hemoglobin 30.5 pg (27-33); Mean Corpuscular Hgb Conc 34.8 g/dL (31-36); Mean Corpuscular Volume 87.6 fL (80-97); Mean Platelet Volume 7.4 fL (7.5-11.2); Nucleated Red Blood Cells % 0.2 %/100WBC (0.0-0.8); Platelet Count 250 10^3/uL (150-450); Red Blood Count 5.13 10^6/uL (4.06-5.63); Red Cell Distribution Width 14.4 % (12-17)
[2024-05-13 13:30] LABS: ALT 39 U/L (7-52); AST 27 U/L (13-39); Albumin 4.1 g/dL (3.2-5.2); Albumin/Globulin Ratio 1.4 (1-3); Alkaline Phosphatase 129 U/L (35-149); Anion Gap 12 mmol/L (2-16); Blood Urea Nitrogen 17 mg/dL (6-24); C Reactive Protein 20.92 mg/L (<8.01); CO2 Carbon Dioxide 22 mmol/L (22-32); Calcium 9.5 mg/dL (8.6-10.3); Chloride 105 mmol/L (101-111); Creatinine, Serum 1.61 mg/dL (0.67-1.17); Globulin 2.9 g/dL (2-4); Glucose 157 mg/dL (70-100); Lipase < 10 U/L (11.0-82.0); Potassium 4.2 mmol/L (3.5-5.0); Sodium 139 mmol/L (135-145); Total Bilirubin 0.6 mg/dL (0.2-1.0)
[2024-05-13] MEDS: Lactated Ringers 1000 ml BAG 1,000 ML IV ONE (13:33)
[2024-05-13 13:44] LABS: Urine Appearance Clear; Urine Bilirubin Negative (Negative); Urine Blood 1+ (Negative); Urine Color Yellow; Urine Glucose 2+ (>=150 mg/dL) (Negative); Urine Ketones 1+ (Negative); Urine Nitrite Negative (Negative); Urine Protein Trace (Negative); Urine Specific Gravity 1.028 (1.002-1.030); Urine Urobilinogen Negative (Negative)
[2024-05-13 13:46] LABS: Urine Bacteria Absent /HPF (Absent); Urine Red Blood Cell 3+(>10/hpf) /HPF (0-Trace); Urine White Blood Cell Trace(0-5/hpf) /HPF (0-Trace)
[2024-05-13] MEDS: cefTRIAXone 1 gm/50 mL D5W 1 GM/50 ML BAG IV ONE (14:03)
[2024-05-13] MEDS ORDERED: Metoclopramide 5 MG/ML VIAL (10 mg) IV PRN (14:14)
[2024-05-13] MEDS ORDERED: Naloxone 0.4 mg VIAL 0.4 mg/ml 1 ml VIAL IV PRN (14:14)
[2024-05-13] MEDS ORDERED: fentaNYL 100 mcg/2 ml 50 MCG/ML VIAL IV PRN (14:14)
[2024-05-13] MEDS ORDERED: Ondansetron 4 mg VIAL 2 MG/ML 2 ml VIAL IV PRN (14:14)
[2024-05-13] MEDS ORDERED: NS 0.45% 1000 ml BAG 1,000 ML IV SCH (15:00)
[2024-05-13] MEDS ORDERED: Dextrose 50% Syringe 50 ml 25 GM/50 ML SYRINGE IV PUSH PRN (16:43)
[2024-05-13] MEDS ORDERED: Famotidine IV 10 MG/ML 2 ml VIAL (20 mg) ONE (17:53)
[2024-05-13] MEDS ORDERED: Iohexol 180 (CONTRAST) 10 ML SDV IV ONE (17:57)
[2024-05-13] MEDS ORDERED: fentaNYL 100 mcg/2 ml 50 MCG/ML VIAL ONE (18:31)
[2024-05-13] MEDS ORDERED: Lidocaine 2% PF 5 ML VIAL ONE (18:32)
[2024-05-13] MEDS ORDERED: Propofol 10 MG/ML 20 ML BTL ONE (18:32)
[2024-05-13] MEDS ORDERED: Midazolam 2 mg/2 ml VIAL 1 mg/ml 2 ml VIAL (2 mg) ONE (18:32)
[2024-05-13] MEDS ORDERED: Succinylcholine 200 mg VIAL 20 mg/ml 10 ml VIAL (200 mg) ONE (18:33)
[2024-05-13] MEDS ORDERED: Rocuronium 50 mg VIAL 10 mg/ml 5 ml VIAL (50 mg) ONE (18:34)
[2024-05-13] MEDS: Buffered Lidocaine 1% SYRIN 1 ml INTRADERM ONE (21:56)
[2024-05-13] MEDS: Acetaminophen IV 1 GM/100ML 1,000 MG/100 ML BAG IV ONE (21:56)
[2024-05-13] MEDS: Lactated Ringers 1000 ml BAG 1,000 ML IV SCH (21:57)
[2024-05-13] MEDS: Scopolamine 1 mg/72hr PATCH TRANSDERM ONE (21:57)
[2024-05-13] MEDS: Calcium Carb (TUMS) 500 mg CHEW TAB PO ONE (22:01)
[2024-05-14] MEDS: Lactated Ringers 1000 ml BAG 1,000 ML IV ONE (06:35)
[2024-05-14 10:29] LABS: ABS Basophils 0.1 10^3/uL (0.0-0.1); ABS Eosinophils 0.1 10^3/uL (0.0-0.5); ABS Lymphocytes 1.4 10^3/uL (1.0-4.8); ABS Neutrophils 6.8 10^3/uL (1.5-7.6); Hematocrit 42.2 % (38-53); Hemoglobin 14.3 g/dL (13.2-16.3); Lymphocyte % 14.9 %; Mean Corpuscular Hemoglobin 29.8 pg (27-33); Mean Corpuscular Volume 87.7 fL (80-97); Mean Platelet Volume 6.9 fL (7.5-11.2); Platelet Count 243 10^3/uL (150-450); Red Blood Count 4.81 10^6/uL (4.06-5.63); Red Cell Distribution Width 14.3 % (12-17); White Blood Count 9.3 10^3/uL (3.6-10.2)
[2024-05-14] MEDS: Aspirin EC 81 mg TAB.EC (enteric coated) PO SCH (10:35)
[2024-05-14 11:03] LABS: Calcium 8.7 mg/dL (8.6-10.3); Creatinine, Serum 1.39 mg/dL (0.67-1.17); Magnesium 1.6 mg/dL (1.9-2.7); Potassium 3.9 mmol/L (3.5-5.0); eGFR CKD-EPI 52.5 (>60)
[2024-05-14] MEDS: MAGNESIUM SULFATE IV ONE (12:55)
[2024-05-14] MEDS: LACTATED RINGERS IV ONE (12:55)
[2024-05-14] MEDS: cefTRIAXone 1 gm/50 mL D5W 1 GM/50 ML BAG IV SCH (14:10)
[2024-05-14] MEDS: Magnesium Sulfate 2 gm BAG 2 GM/50 ML BAG IVPB ONE (16:30)
[2024-05-15 06:42] LABS: Calcium 8.7 mg/dL (8.6-10.3); Creatinine, Serum 1.24 mg/dL (0.67-1.17); Magnesium 2.3 mg/dL (1.9-2.7); Potassium 4.1 mmol/L (3.5-5.0); eGFR CKD-EPI 60.3 (>60)
[2024-05-15 10:32] VITALS: BP 115/63
== END 2024-05-15 12:20 | disposition home or self-care (01) ==
LOC: EDHOLD 10:53 → ED 10:53 → SUATTDRO 15:13 → AA 15:57 → SSU 22:01
PROVIDERS: ADMIT Internal Medicine; ATTEND Internal Medicine